=== PATIENT | male | born 1965 | race Caucasian/White ===

== ENCOUNTER 2024-06-14 14:33 | Inpatient (IN) | payer OTHER ==
[~2024-06-14] VITALS: Ht 177.8 cm; Wt 99.0 kg
--- NOTE | 2024-06-14 15:01 | ED.PDOC ---
History of Present Illness HPI Comments 58 year old male presents to the ED with chief complaint of generalized weakness. Patient reports that he has been experiencing generalized weakness with associated symptoms of right arm and leg pain, chest pressure, palpitations, and lightheadedness for the past 5 days. Patient relays that he has been out of his Eliquis for the past month due to not being able to afford the wood of it anymore. Patient has history of CVA with left sided deficits and CAD. Patient denies any SOB, dizziness, headache, blurred vision, or N/V. Chief Complaint: General Weakness Time Seen by MD: 14:56 Reviewed Notes: Nurses Notes, Medications, Allergies Allergies: Coded Allergies: NO KNOWN ALLERGIES (Unverified , 06/14/24) Information Source: Patient Mode of Arrival: Ambulatory Severity: Moderate Timing: Hours Duration: Since onset Prehospital treatment: None Past Medical History PAST MEDICAL HISTORY: CAD, CVA, High Lipids, HTN Surgical History: Pacemaker Family History Family History: Reviewed,noncontributory to illness Social History Smoker: Non-Smoker Alcohol: Denies ETOH Use Drugs: Denies Drug Use Lives In: Home Constitutional: reports: weakness; denies: chills, diaphoresis, fatigue, fever, malaise, sweats, others EENTM: denies: blurred vision, double vision, ear bleeding, ear discharge, ear drainage, ear pain, ear ringing, eye pain, eye redness, hearing loss, mouth pain, mouth swelling, nasal discharge, nose bleeding, nose congestion, nose pain, photophobia, tearing, throat pain, throat swelling, voice changes, others Respiratory: denies: cough, hemoptysis, orthopnea, SOB at rest, shortness of breath, SOB with excertion, stridor, wheezing, others Cardiovascular: reports: chest pain, lightheadedness, palpitations; denies: dizzy spells, diaphoresis, Dyspnea on exertion, edema, irregular heart beat, left arm pain, PND, syncope, others Gastrointestinal: denies: abdomen distended, abdominal pain, blood streaked bowels, constipated, diarrhea, dysphagia, difficulty swallowing, hematemesis, m obed, nausea, poor appetite, poor fluid intake, rectal bleeding, rectal pain, vomiting, others Genitourinary: denies: burning, dysuria, flank pain, frequency, hematuria, incontinence, penile discharge, penile sore, pain, testicle pain, testicle swelling, urgency, others Neurological: denies: dizziness, fainting, headache, left sided numbness, left sided weakness, numbness, paresthesia, pre-existing deficit, right sided numbness, right sided weakness, seizure, speech problems, tingling, tremors, weakness, others Musculoskeletal: reports: others (Rt arm and leg pain); denies: back pain, gout, joint pain, joint swelling, muscle pain, muscle stiffness, neck pain Integumetry: denies: bruises, change in color, change in hair/nails, dryness, laceration, lesions, lumps, rash, wounds, others Allergic/Immunocompromised: denies: Difficulty Healing, Frequent Infections, Hives, Itching, others Hematologic/Lymphatic: denies: anemia, blood clots, easy bleeding, easy bruising, swollen glands, others Endocrine: denies: excessive hunger, excessive sweating, excessive thirst, excessive urination, flushing, intolerance to cold, intolerance to heat, unexplained weight gain, unexplained weight loss, others Psychiatric: denies: anxiety, bipolar disorder, depression, hopeless, panic disorder, schizophrenia, sleepless, suicidal, others All Other Systems: Reviewed and Negative Physical Exam General Appearance: No Apparent Distress, Normal HEENT: Normal ENT Inspection, Pharynx Normal, TMs Normal Neck: Full Range of Motion, Non-Tender, Normal, Normal Inspection Respiratory: Chest Non-Tender, Lungs Clear, No Accessory Muscle Use, No Respiratory Distress, Normal Breath Sounds Cardiovascular: No Edema, No JVD, No Murmur, No Gallop, Normal Peripheral Pulses, Regular Rate/Rhythm, Other (Pacemaker in place) Breast Exam: Deferred Gastrointestinal: No Organomegaly, Non Tender, No Pulsatile Mass, Normal Bowel Sounds, Soft Genitalia: Deferred Pelvic: Deferred Rectal: Deferred Extremities: No calf tenderness, Normal capillary refill, Normal inspection, Normal range of motion, Non-tender, No pedal edema Musculoskeletal : Apperance: Normal Neurologic: Alert, roving inspector II-XII nml as Tested, Normal Affect, Normal Mood, No Sensory Deficits, Other (Left arm and leg weakness) Cerebellar Function: Normal Reflexes: Normal Skin: Dry, Normal Color, Warm Lymphatic: No Adenopathy Was a procedure done? Was a procedure done?: No Differential Dx Considerations may include: ACS, CVA, electrolyte abnormality, infectious etiology X-Ray, Labs, Meds, VS Vital Signs Date Time Temp Pulse Resp B/P (MAP) Pulse Ox O2 Delivery O2 Flow Rate FiO2 06/14/24 14:50 98.9 75 19 161/106 (124) 95 Lab Test 06/14/24 16:01 Range/Units White Blood Count 7.4 4.4-10.8 10^3/uL Red Blood Count 4.96 4.5-5.90 10^6/uL Hemoglobin 14.8 13.5-17.5 g/dL Hematocrit 43.9 41.0-53.0 % Mean Corpuscular Volume 88.5 80.0-100.0 fL Mean Corpuscular Hemoglobin 29.7 28.0-32.0 pg Mean Corpuscular Hemoglobin Concent 33.6 32.0-36.0 g/dL Red Cell Distribution Width 14.0 11.8-14.3 % Platelet Count 233 140-450 10^3/uL Mean Platelet Volume 7.9 6.9-10.8 fL Neutrophils (%) (Auto) 65.7 37.0-80.0 % Lymphocytes (%) (Auto) 23.4 10.0-50.0 % Monocytes (%) (Auto) 8.3 0.0-12.0 % Eosinophils (%) (Auto) 1.9 0.0-7.0 % Basophils (%) (Auto) 0.7 0.0-2.0 % Neutrophils # (Auto) 4.9 1.6-8.6 10 ^3/uL Lymphocytes # (Auto) 1.7 0.4-5.4 10 ^3/uL Monocytes # (Auto) 0.6 0-1.3 10 ^3/uL Eosinophils # (Auto) 0.1 0-0.8 10 ^3/uL Basophils # (Auto) 0 0-0.2 10 ^3/uL Nucleated Red Blood Cells 0.1 % Sodium Level 142 136-145 mmol/L Potassium Level 3.4 L 3.5-5.1 mmol/L Chloride Level 107 98-107 mmol/L Carbon Dioxide Level 28 20-31 mmol/L Anion Gap 7 5-15 Blood Urea Nitrogen 23 9-23 mg/dL Creatinine 1.41 H 0.700-1.30 mg/dL Glomerular Filtration Rate Calc 57 >90 mL/min BUN/Creatinine Ratio 16.3 10.0-20.0 Serum Glucose 107 H 74-106 mg/dL Calcium Level 10.0 8.7-10.4 mg/dL Troponin I High Sensitivity 17 </=54 ng/L B-Type Natriuretic Peptide 23.47 0-100 pg/mL Chest XR: FINDINGS: Lines and Tubes: Dual-chamber pacemaker is in place with pulse generator over the left chest Lungs: No focal consolidation. Pleura: No effusion. No pneumothorax. Cardiomediastinal contours: Unremarkable Bones: No acute osseous abnormality. IMPRESSION: 1. No acute cardiopulmonary disease. CT Head: FINDINGS: There is no evidence of acute intracranial hemorrhage, extra-axial collection, mass effect, midline shift, herniation or hydrocephalus. Small focal area of decreased attenuation in the moises on the right may represent a small infarct. Small area of decreased attenuation in the thalamus on the left. This suggests old lacunar infarct. The ventricles, sulci and cisterns are age appropriate. The lai-white differentiation is intact. Patchy periventricular and subcortical white matter hypoattenuation is nonspecific but may be related to small vessel ischemic disease. The visualized paranasal sinuses and mastoid air cells are clear. The surrounding soft tissues and osseous structures are unremarkable. IMPRESSION: 1. Findings suggest old lacunar infarcts in the moises thalamus. 2. No acute intracranial hemorrhage. 3. No prior studies for comparison Images Reviewed?: Images reviewed and evaluated by me Time of 1ST Reevaluation: 15:56 Reevaluation 1ST: Unchanged Patient Education/Counseling: Diagnosis, Treatment Family Education/Counseling: No Family Present Additional Information The following tests were ordered, and results were reviewed by me: Additional Information was gathered from interviewing the following independent historians: I reviewed and agreed with the following test results read by other providers: I discussed treatment and results with medical personnel and: Departure 1 Departure Time of Disposition: 17:18 (Patient presented with chest pain that was concerning for possible STEMI, ACS, PE, Pneumonia, Muscle Strain, COPD, Dissec tion. Data: 1. I ordered and reviewed the result of at least 3 labs including a CBC, BMP, and Troponin. 2. I independently interpreted the following tests: EKG which shows paced rhythm and Chest X-ray which shows benign chest.Risk:This patient has a high risk of morbidity due to further diagnostic testing or treatment and may suffer from an acute cardiac or respiratory disorder. Workup reveals concern for ACS and patient should be admitted for further workup and possible expert consultation. ) Impression: Primary Impression: Acute chest pain Additional Impressions: Generalized weakness History of stroke Disposition: ADMITTED INPATIENT Admit to: Med Surg Condition: Serious Critical Care Note Critical Care Time?: No Stability Stability form required: No Heart Score Heart Score: Heart Score Response (Comments) Value History Moderate Suspicious 1 EKG Repolarization Disturb 1 Age 45-64 1 Risk Factors >3 or Hx ASHD 2 Troponin 1-2 x's Normal limit 1 Total 6 I personally scribed for RONNY ABARCA MD ([email or web address]) on 06/14/24 at 15:01. Electronically submitted by Vivek Conklin ([email or web address]). I personally scribed for RONNY ABARCA MD ([email or web address]) on 06/14/24 at 15:31. Electronically submitted by Vivek Conklin ([email or web address]). I personally scribed for RONNY ABARCA MD ([email or web address]) on 06/14/24 at 16:43. Electronically submitted by Vivek Conklin ([email or web address]). RONNY ABARCA MD Jun 14, 2024 15:01
--- NOTE | 2024-06-14 15:29 | DVH ---
CHEST RADIOGRAPH Indication: weakness Technique: Single frontal view of the chest was obtained Comparison: None FINDINGS: Lines and Tubes: Dual-chamber pacemaker is in place with pulse generator over the left chest Lungs: No focal consolidation. Pleura: No effusion. No pneumothorax. Cardiomediastinal contours: Unremarkable Bones: No acute osseous abnormality. IMPRESSION: 1. No acute cardiopulmonary disease.
--- NOTE | 2024-06-14 15:51 | DVH ---
EXAM: CT HEAD WITHOUT CONTRAST INDICATION: weakness, hx of cva TECHNIQUE: CT of the head without intravenous contrast. Radiation Dose Information: CT Dose: CTDI volume is 58.2 mGy. Dose-length product is 1049.29 mGy*cm The dose indicators for CT are the volume Computed Tomography (CT) Dose Index (CTDIvol) and the Dose Length Product (DLP), and are measured in units of mGy and mGy-cm, respectively. These indicators are not patient dose, but values generated from the CT scanner acquisition factors. The report includes radiation exposure data for exposures received during this examination. COMPARISON: None FINDINGS: There is no evidence of acute intracranial hemorrhage, extra-axial collection, mass effect, midline s hift, herniation or hydrocephalus. Small focal area of decreased attenuation in the moises on the right may represent a small infarct. Small area of decreased attenuation in the thalamus on the left. This suggests old lacunar infarct. The ventricles, sulci and cisterns are age appropriate. The lai-white differentiation is intact. Patchy periventricular and subcortical white matter hypoattenuation is nonspecific but may be related to small vessel ischemic disease. The visualized paranasal sinuses and mastoid air cells are clear. The surrounding soft tissues and osseous structures are unremarkable. IMPRESSION: 1. Findings suggest old lacunar infarcts in the moises thalamus. 2. No acute intracranial hemorrhage. 3. No prior studies for comparison
[2024-06-14 16:14] LABS: Basophils # (auto) 0 10 ^3/uL (0-0.2); Basophils % (auto) 0.7 % (0.0-2.0); Eosinophils # (auto) 0.1 10 ^3/uL (0-0.8); Eosinophils % (auto) 1.9 % (0.0-7.0); Hematocrit 43.9 % (41.0-53.0); Hemoglobin 14.8 g/dL (13.5-17.5); Lymphocytes # (auto) 1.7 10 ^3/uL (0.4-5.4); Lymphocytes % (auto) 23.4 % (10.0-50.0); Mean Corpuscular Hemoglobin 29.7 pg (28.0-32.0); Mean Corpuscular Hgb Conc. 33.6 g/dL (32.0-36.0); Mean Corpuscular Volume 88.5 fL (80.0-100.0); Monocytes # (auto) 0.6 10 ^3/uL (0-1.3); Monocytes % (auto) 8.3 % (0.0-12.0); Neutrophils # (auto) 4.9 10 ^3/uL (1.6-8.6); Neutrophils % (auto) 65.7 % (37.0-80.0); Nucleated Red Blood Cells % 0.1 %; Platelet Count (auto) 233 10^3/uL (140-450); Red Blood Cells 4.96 10^6/uL (4.5-5.90); White Blood Cell 7.4 10^3/uL (4.4-10.8)
[2024-06-14 16:23] LABS: Chloride 107 mmol/L (98-107); Sodium 142 mmol/L (136-145)
[2024-06-14 16:24] LABS: Anion Gap 7 (5-15); Carbon Dioxide 28 mmol/L (20-31)
[2024-06-14 16:29] LABS: BUN/Creatinine Ratio 16.3 (10.0-20.0); Blood Urea Nitrogen 23 mg/dL (9-23)
[2024-06-14 16:36] LABS: Glucose 107 mg/dL (74-106); Potassium 3.4 mmol/L (3.5-5.1)
[2024-06-14] MEDS: SODIUM CHLORIDE 0.9% 1,000 ML IV SCH (22:15)
[2024-06-14] MEDS ORDERED: DOCUSATE SOD 100 MG CAP PO PRN (22:15)
[2024-06-14] MEDS ORDERED: cloNIDine HCL 0.1 MG TAB PO PRN (22:15)
[2024-06-14] MEDS ORDERED: MORPHINE SULFATE INJ 2 MG/ml SYRG IV PRN (22:15)
[2024-06-14] MEDS ORDERED: NITROGLYCERIN 0.4 MG SL TAB SL PRN (22:15)
[2024-06-14] MEDS ORDERED: ONDANSETRON HCL 4 MG/2 ML VIAL IV PRN (22:15)
[2024-06-14] MEDS ORDERED: hydrALAZINE HCL 20 MG/ML VL IV PRN (22:15)
[2024-06-15] VITALS (10 sets, daily range): BP systolic 135–171; BP diastolic 77–115; PULSE 60–94; RESP 13–19; TEMP 97.5–98.1; O2SAT 94–98
--- NOTE | 2024-06-15 01:15 | DVHHP2 ---
IVAN MILAN DIMENSIONAL INTEGRATION ENGINEER 06/15/24 0115: History of Present Illness Reason for Visit: Generalized weakness, chest pain, dizziness History of Present Illness 58-year-old male with past medical history of CVA with left-sided deficits, CAD, hypertension presents with complaints of generalized weakness, chest pain, shortness of breath, and dizziness x5 days. Patient describes chest discomfort as pressure-like 09/29. No additional associated symptoms. Patient endorsed he has been off his Eliquis for a month because he can not afford it. Patient also endorsing generalized chronic right upper and lower extremity pain. At this time patient denies any fevers, chills, headaches, blurred vision, additional de ficits, slurred speech, leg edema. Cardiovascular: CAD, HTN CURRENCY EXCHANGE SPECIALIST: CVA Renal/: Chronic renal insuff Smoke: No ALCOHOL: none Drugs: None Lives: with Family Review of Systems Constitutional: Yes: Weakness; No: Fever, Chills, Sweats, Malaise, Other Eyes: No: Pain, Vision change, Conjunctivae inflammation, Eyelid inflammation, Other, Redness ENT: No: Ear pain, Ear discharge, Nose pain, Nose discharge, Nose congestion, Mouth pain, Mouth swelling, Throat pain, Throat swelling, Other Respiratory: Shortness of breath; No: Cough, Dry, SOB with excertion, Wheezing, Hemoptysis, Pleuritic Pain, Sputum, Wheezing, Other Cardiovascular: Chest Pain; No: Palpitations, Orthopnea, Paroxysmal Noc. Dyspnea, Edema, Lt Headedness, Other Gastrointestinal: No: Nausea, Vomiting, Abdominal Pain, Diarrhea, Constipation, Melena, Hematochezia, Other Genitourinary: No Dysuria, No Frequency, No Incontinence, No Hematuria, No Retention, No Other Musculoskeletal: No: other, neck pain, shoulder pain, arm pain, back pain, hand pain, leg pain, foot pain Skin: No: Rash, Lesions, Jaundice, Bruising, Other Neurological: No: Weakness, Numbness, Incoordination, Change in speech, Confusion, Seizures, Other Allergies: Coded Allergies: NO KNOWN ALLERGIES (Unverified , 06/14/24) Medications Current Medications Medications Dose Ordered Sig/Zack Route Start Time Stop Time Status Last Admin Dose Admin Sodium Chloride 1,000 ml @ 75 mls/hr [id number] IV 06/14/24 22:15 06/15/24 11:34 Docusate Sodium 100 mg BIDPRN PRN PO 06/14/24 22:15 Acetaminophen 650 mg Q6HP PRN PO 06/14/24 22:15 Acetaminophen/ Hydrocodone Bitart 1 tab Q6HPRN PRN PO 06/14/24 22:15 Ondansetron HCl 4 mg Q4HP PRN IV 06/14/24 22:15 UNV Enoxaparin Sodium 40 mg DAILY SC 06/15/24 10:00 Nitroglycerin 0.4 mg Q5MINP PRN SL 06/14/24 22:15 Morphine Sulfate 2 mg Q30M PRN IV 06/14/24 22:15 Hydralazine HCl 50 mg TID PO 06/15/24 06:00 Carvedilol 12.5 mg BID PO 06/15/24 10:00 Meclizine HCl 25 mg TID PO 06/15/24 06:00 Clonidine HCl 0.1 mg Q8HP PRN PO 06/14/24 22:15 Hydralazine HCl 10 mg Q6HPRN PRN IV 06/14/24 22:15 Exam Vital Signs Vital Signs Date Time Temp Pulse Resp B/P (MAP) Pulse Ox O2 Delivery O2 Flow Rate FiO2 06/14/24 14:50 98.9 75 19 161/106 (124) 95 General Appearance: Alert, Oriented X3, Cooperative, mild distress HEENT: Atraumatic, PERRLA, EOMI, Mucous membr. moist/pink Respiratory: Clear to auscultation, Normal air movement Cardiovascular: Regular rate, Normal S1, Normal S2 Abdominal: Soft, No tenderness Extremities: No cyanosis, Normal pulses Skin: No rashes, No breakdown Neuro: Normal speech, Other (Left-sided deficits at baseline) Psych/Mental Status: Mental status NL, Mood NL Labs/Xrays Labs Test 06/14/24 18:52 06/14/24 16:01 Range/Units Troponin I High Sensitivity 18 </=54 ng/L White Blood Count 7.4 4.4-10.8 10^3/uL Red Blood Count 4.96 4.5-5.90 10^6/uL Hemoglobin 14.8 13.5-17.5 g/dL Hematocrit 43.9 41.0-53.0 % Mean Corpuscular Volume 88.5 80.0-100.0 fL Mean Corpuscular Hemoglobin 29.7 28.0-32.0 pg Mean Corpuscular Hemoglobin Concent 33.6 32.0-36.0 g/dL Red Cell Distribution Width 14.0 11.8-14.3 % Platelet Count 233 140-450 10^3/uL Mean Platelet Volume 7.9 6.9-10.8 fL Neutrophils (%) (Auto) 65.7 37.0-80.0 % Lymphocytes (%) (Auto) 23.4 10.0-50.0 % Monocytes (%) (Auto) 8.3 0.0-12.0 % Eosinophils (%) (Auto) 1.9 0.0-7.0 % Basophils (%) (Auto) 0.7 0.0-2.0 % Neutrophils # (Auto) 4.9 1.6-8.6 10 ^3/uL Lymphocytes # (Auto) 1.7 0.4-5.4 10 ^3/uL Monocytes # (Auto) 0.6 0-1.3 10 ^3/uL Eosinophils # (Auto) 0.1 0-0.8 10 ^3/uL Basophils # (Auto) 0 0-0.2 10 ^3/uL Nucleated Red Blood Cells 0.1 % Sodium Level 142 136-145 mmol/L Potassium Level 3.4 L 3.5-5.1 mmol/L Chloride Level 107 98-107 mmol/L Carbon Dioxide Level 28 20-31 mmol/L Anion Gap 7 5-15 Blood Urea Nitrogen 23 9-23 mg/dL Creatinine 1.41 H 0.700-1.30 mg/dL Glomerular Filtration Rate Calc 57 >90 mL/min BUN/Creatinine Ratio 16.3 10.0-20.0 Serum Glucose 107 H 74-106 mg/dL Calcium Level 10.0 8.7-10.4 mg/dL B-Type Natriuretic Peptide 23.47 0-100 pg/mL Assessment/Plan Assessment/Plan Dizziness Chest pain Uncontrolled hypertension History of CVA off oral anticoagulation therapy Plan Admit to telemetry Cardiology consult. Echocardiogram. As needed and have pretentious for optimal BP management. Neurology consult. Defer MRI brain to neurology. Meclizine three times a day. Physical therapy evaluation. Social service consult. Consider transition to more affordable oral anticoagulation therapy IVF NS @ 74ml/hr x 1liter GI ppx pepcid dvt ppx lovenox Plan discussed with: Patient My Orders Orders - IVAN MILAN NP Procedure Category Date Status Time Admit ADMIT 06/14/24 Transmitted 22:03 Code Status CODE 06/14/24 Transmitted 22:03 Vital Signs MATHIEU 06/14/24 In Process 22:03 Review Orders With MATHIEU 06/14/24 In Process Adm. 22:03 Encourage Activity As MATHIEU 06/14/24 In Process Tolerate 22:03 Consistent DIET 06/15/24 Transmitted Carb(Ccho)Diabetes Breakfast Sodium Chloride 0.9% PHA 06/14/24 In Process 22:15 Oxygen By Face Mask RT 06/14/24 Transmitted 22:03 Docusate Sodium PHA 06/14/24 In Process Capsule (Colace 22:15 Acetaminophen Tablet PHA 06/14/24 In Process (Tylenol Tablet) 22:15 Notify Of Changes MATHIEU 06/14/24 In Process From Base 22:03 Advance Directive MATHIEU 06/14/24 In Process 22:03 Echo 2d Mode Cardiac US 06/14/24 Logged DOP 22:03 Basic Metabolic Panel LAB 06/15/24 Logged 05:00 Basic Metabolic Panel LAB 06/16/24 Verified 05:00 Basic Metabolic Panel LAB 06/17/24 Verified 05:00 Complete Blood Count LAB 06/15/24 Logged 05:00 Complete Blood Count LAB 06/16/24 Verified 05:00 Complete Blood Count LAB 06/17/24 Verified 05:00 Patient Condition ORDERS 06/14/24 Transmitted 22:03 Allergies MATHIEU 06/14/24 In Process 22:03 Hydrocodone-Acet PHA 06/14/24 In Process 5/325mg Tab ([place] 22:15 Ondansetron Hcl PHA 06/14/24 Pending (Zofran) 22:15 Enoxaparin Sodium PHA 06/15/24 In Process (Lovenox) 10:00 Sequential MATHIEU 06/14/24 In Process Compression Device Nitroglycerin PHA 06/14/24 In Process Sublingual (Ntrostat 22:15 Morphine Sulfate PHA 06/14/24 In Process Injection 22:15 Stat Ekg For Chest MATHIEU 06/14/24 In Process Pain 22:03 Notify Of Changes MATHIEU 06/14/24 In Process From Base 22:03 Alumina Refinery Operator For MATHIEU 06/14/24 In Process 24 Hours 22:03 Emergency Dysrhythmia MATHIEU 06/14/24 In Process Protocol 22:03 Rhythm Strips Once MATHIEU 06/14/24 In Process Every Shift 22:03 Oxygen By Nasal RT 06/14/24 Transmitted Cannula 22:03 Hydralazine Hcl PHA 06/15/24 In Process Tablet (Apresoline 06:00 Carvedilol Tablet PHA 06/15/24 In Process (Coreg Tablet) 10:00 Meclizine Tablet PHA 06/15/24 In Process (Antivert Tablet) 06:00 Pt Request For Service PT 06/14/24 Logged 22:03 Clonidine Hcl Tablet PHA 06/14/24 In Process (Catapres Tablet) 22:15 Hydralazine Injection PHA 06/14/24 In Process (Apresoline Inject 22:15 * Cardiology Consult CONS 06/14/24 Transmitted 22:03 Date of Service: Jun 15, 2024 Billing Provider: SHERRY CHAN MD Common Visit Codes: NOT BILLABLE SHERRY CHAN MD 06/15/24 1206: Review of Systems Allergies: Coded Allergies: NO KNOWN ALLERGIES (Unverified , 06/14/24) Assessment/Plan Assessment/Plan Patient's chart is reviewed in the discussed with nurse practitioner. I agree with the nurse practice nurse evaluation, documentation, assessment and care plan as outlined Plan discussed with: Other IVAN MILAN NP Jun 15, 2024 01:15 SHERRY CHAN MD Jun 15, 2024 12:06
[2024-06-15] MEDS: HYDROcodone-ACET 5/325MG TAB PO PRN (01:47)
[2024-06-15 02:35] LABS: Urine Bacteria None Seen /hpf (None Seen)
[2024-06-15 02:59] LABS: Urine Blood Negative /uL (Negative); Urine Clarity Clear (Clear); Urine Color Light-Yellow (Yellow); Urine Protein, UAD 1+ (Negative); Urine Specific Gravity 1.021 (1.001-1.035); Urine Squamous Epithelial Cell None Seen /hpf (<5); Urine Urobilinogen Normal (Negative); Urine WBC < 1 /HPF (0-3); Urine pH 5.5 (5.0-9.0)
[2024-06-15 06:37] LABS: Basophils # (auto) 0.1 10 ^3/uL (0-0.2); Basophils % (auto) 0.7 % (0.0-2.0); Eosinophils # (auto) 0.1 10 ^3/uL (0-0.8); Eosinophils % (auto) 1.7 % (0.0-7.0); Hematocrit 44.2 % (41.0-53.0); Hemoglobin 14.5 g/dL (13.5-17.5); Lymphocytes # (auto) 2.1 10 ^3/uL (0.4-5.4); Lymphocytes % (auto) 26.4 % (10.0-50.0); Mean Corpuscular Hemoglobin 29.5 pg (28.0-32.0); Mean Corpuscular Hgb Conc. 32.8 g/dL (32.0-36.0); Mean Corpuscular Volume 89.7 fL (80.0-100.0); Monocytes # (auto) 0.7 10 ^3/uL (0-1.3); Monocytes % (auto) 8.4 % (0.0-12.0); Neutrophils % (auto) 62.8 % (37.0-80.0); Nucleated Red Blood Cells % 0.1 %; Platelet Count (auto) 212 10^3/uL (140-450); Red Blood Cells 4.92 10^6/uL (4.5-5.90)
[2024-06-15 06:49] LABS: Anion Gap 11 (5-15); Carbon Dioxide 23 mmol/L (20-31); Sodium 143 mmol/L (136-145)
[2024-06-15 06:50] LABS: Calcium 9.8 mg/dL (8.7-10.4)
[2024-06-15] MEDS: MECLIZINE HCL 25 MG TAB PO SCH (06:50)
[2024-06-15] MEDS: hydrALAZINE HCL 25 MG TAB PO SCH (06:50)
[2024-06-15 06:55] LABS: BUN/Creatinine Ratio 14.5 (10.0-20.0); Blood Urea Nitrogen 17 mg/dL (9-23); Chloride 109 mmol/L (98-107); Glucose 85 mg/dL (74-106); Potassium 3.3 mmol/L (3.5-5.1)
[2024-06-15] MEDS ORDERED: CARV12.544 PO (06:56)
[2024-06-15] MEDS ORDERED: CLON-853 PO (06:56)
[2024-06-15] MEDS ORDERED: LEVO50TA7 PO (06:56)
[2024-06-15] MEDS ORDERED: MAGN400T40 PO (06:56)
[2024-06-15] MEDS ORDERED: HYDR50TA47 PO (06:56)
[2024-06-15] MEDS ORDERED: TIZA4CAP PO (06:56)
[2024-06-15] MEDS ORDERED: ALLO100T PO (06:56)
[2024-06-15] MEDS ORDERED: NIFE1TAB31 PO (06:56)
[2024-06-15] MEDS ORDERED: LOSA-535 PO (06:56)
[2024-06-15] MEDS ORDERED: POTA20IN4 IV (06:56)
[2024-06-15] MEDS ORDERED: FURO1TAB33 PO (06:56)
[2024-06-15] MEDS: CARVEDILOL 3.125 MG TAB PO SCH (09:22)
[2024-06-15] MEDS: ENOXAPARIN SOD 40 MG/0.4 ML SYRINGE SC SCH (09:22)
[2024-06-15 12:57] LABS: Triglycerides 99 mg/dL (< 150)
[2024-06-15 12:58] LABS: LDL Cholesterol 73 mg/dL (< 100)
[2024-06-15 12:59] LABS: Cholesterol 122 mg/dL (< 200)
[2024-06-15 13:04] LABS: HDL Cholesterol 37 mg/dL (40-59)
[2024-06-15] MEDS: POTASSIUM EFFERVESENT TAB 25 MEQ PO ONE (13:13)
[2024-06-15] MEDS: ACETAMINOPHEN 325 MG TAB PO PRN (13:15)
--- NOTE | 2024-06-15 13:43 | DVHSR ---
APPROVED REPORT EXAM: Two-dimensional and M-mode echocardiogram with Doppler and color Doppler. Mitral Valve MitralMitral Stenosis E/A ratio0.02D MVAcm2 LEFT VENTRICLE The left ventricle is normal size. There is normal left ventricular wall thickness. The left ventricle is normal in structure and function. Left ventricle systolic function is normal. The Ejection Fraction is 55-60%. No regional wall motion abnormalities noted. RIGHT VENTRICLE The right ventricle is normal size. There is normal right ventricular wall thickness. The right ventricular systolic function is normal. ATRIA The left atrium size is normal. The right atrium size is normal. The interatrial septum is intact with no evidence for an atrial septal defect. MITRAL VALVE The mitral valve is normal in structure and function. There is no evidence of mitral valve prolapse. There is no mitral valve stenosis. There is no mitral valve regurgitation noted. PULMONIC VALVE The pulmonary valve is normal in structure and function. There is no pulmonic valvular regurgitation. There is no pulmonic valvular stenosis. TRICUSPID VALVE The tricuspid valve is normal in structure and function. There is no tricuspid valve regurgitation noted. There is no tricuspid valve prolapse or vegetation. There is no tricuspid valve stenosis. AORTIC VALVE The aortic valve is normal in structure and function. No aortic regurgitation is present. There is no aortic valvular stenosis. There is no aortic valvular vegetation. GREAT VESSELS The aortic root is normal in size. PERICARDIAL EFFUSION There is a no pericardial effusion. Conclusion There is normal left ventricular wall thickness. The left ventricle is normal in structure and function. Left ventricle systolic function is normal. The Ejection Fraction is 55-60%. There is no gross valvular pathology There is no pericardial effusion.
--- NOTE | 2024-06-15 14:42 | ECG ---
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
[2024-06-15] MEDS: RIVAROXABAN 20 MG TAB PO SCH (17:12)
--- NOTE | 2024-06-15 20:02 | DVHINCON2 ---
DATE OF CONSULTATION: 06/15/2024 REFERRING PHYSICIAN: Dr. Everton Jones. CONSULTING PHYSICIAN: Dr. Valerio. INDICATION: Chest pain. HISTORY OF PRESENT ILLNESS: The patient is a 58-year-old male with history of hypertension, stroke in the past, history of AFib, status post permanent pacemaker implantation. The patient has been on Eliquis in the past, however, could not afford it and stopped recently. Now presented to the hospital with complaints of generalized body pain and also chest pain. Described the pain as left sided, sharp. PR has been ruled out with serial negative troponin. The patient also complains of bilateral lower extremity pain, sharp and weakness. PAST MEDICAL HISTORY: * Hypertension. * Stroke. * AFib. * Status post permanent pacemaker implantation. MEDICATIONS: Per med rec. ALLERGIES: No known drug allergies. PHYSICAL EXAMINATION: GENERAL: Alert and awake, in no form of cardiopulmonary distress. VITAL SIGNS: Blood pressure 142/97, pulse ____ per minute, saturation 97%. HEENT: No carotid bruits. No jugular venous distention. CHEST: Bilateral air entry. CARDIOVASCULAR: Precordial and carotid pulses palpable. Normal S1, S2. No appreciable gallop or rubs ____. EXTREMITIES: No peripheral edema. DIAGNOSTIC DATA: CBC is normal. Sodium 140, potassium 3.2, creatinine is 1.1. Troponin negative x3. ASSESSMENT: * Chest pain, atypical. Myocardial infarction has been ruled out with serial negative troponins. * Hypokalemia. * Generalized body pain. * Hypertension. * History of stroke with residual left sided body weakness. * History of atrial fibrillation. * Status post permanent pacemaker implantation. RECOMMENDATIONS: * Continue with Xarelto for stroke risk reduction. * Continue statin therapy. * We will supplement potassium, keep potassium above 4. * We will review echo once completed. * Continue telemetry monitoring. * If echo unremarkable, no further inpatient cardiac workup indicated. Thank you for allowing me to participate in the care of this patient. MD ANTONIO Garnett/KARINE/ANGELINE TID: [id number] RECEIPT: [id number]
[2024-06-15] MEDS: POTASSIUM EFFERVESENT TAB 25 MEQ PO SCH (21:38)
[2024-06-15] MEDS: ATORVASTATIN 20 MG TAB PO SCH (21:39)
[2024-06-15] MEDS: CARVEDILOL 12.5 MG TAB PO SCH (21:40)
[2024-06-16 05:00] VITALS: BP 150/94; PULSE 60; RESP 17; TEMP 97.4; O2SAT 98
[2024-06-16] MEDS: LEVOTHYROXINE SODIUM 50 MCG TAB PO SCH (05:23)
[2024-06-16 07:34] LABS: Basophils # (auto) 0.1 10 ^3/uL (0-0.2); Basophils % (auto) 0.9 % (0.0-2.0); Eosinophils # (auto) 0.1 10 ^3/uL (0-0.8); Eosinophils % (auto) 1.8 % (0.0-7.0); Hematocrit 43.2 % (41.0-53.0); Hemoglobin 14.6 g/dL (13.5-17.5); Lymphocytes # (auto) 1.8 10 ^3/uL (0.4-5.4); Lymphocytes % (auto) 23.7 % (10.0-50.0); Mean Corpuscular Hemoglobin 30.4 pg (28.0-32.0); Mean Corpuscular Hgb Conc. 33.9 g/dL (32.0-36.0); Mean Corpuscular Volume 89.6 fL (80.0-100.0); Monocytes # (auto) 0.6 10 ^3/uL (0-1.3); Monocytes % (auto) 7.8 % (0.0-12.0); Neutrophils # (auto) 4.9 10 ^3/uL (1.6-8.6); Neutrophils % (auto) 65.8 % (37.0-80.0); Platelet Count (auto) 211 10^3/uL (140-450); Red Blood Cells 4.83 10^6/uL (4.5-5.90); Red Cell Distribution Width 13.9 % (11.8-14.3); White Blood Cell 7.4 10^3/uL (4.4-10.8)
[2024-06-16 07:42] LABS: Anion Gap 10 (5-15); Carbon Dioxide 26 mmol/L (20-31); Chloride 106 mmol/L (98-107); Potassium 3.6 mmol/L (3.5-5.1); Sodium 142 mmol/L (136-145)
[2024-06-16 07:44] LABS: Calcium 9.7 mg/dL (8.7-10.4)
[2024-06-16 07:48] LABS: Blood Urea Nitrogen 16 mg/dL (9-23); Glucose 80 mg/dL (74-106)
[2024-06-16 08:00] VITALS: PULSE 65
[2024-06-16] MEDS: ALLOPURINOL 100 MG TAB PO SCH (08:51)
[2024-06-16] MEDS: FUROSEMIDE 20 MG TAB PO SCH (08:51)
[2024-06-16] MEDS: NIFEdipine ER 30 MG TAB PO SCH (08:53)
[2024-06-16 09:00] VITALS: BP_SYST 139; BP_SYST 140; BP_DIAS 103; BP_DIAS 86; PULSE 104; PULSE 92; RESP 19; TEMP 97.7; O2SAT 96
[2024-06-16] MEDS ORDERED: MAGNESIUM OXIDE 400 MG TAB PO SCH (10:00)
[2024-06-16] MEDS: MAGNESIUM OXIDE 400 MG TAB PO SCH (11:39)
[2024-06-16] MEDS ORDERED: RIVA20TA PO (11:41)
[2024-06-16 13:00] VITALS: BP 152/82; PULSE 70; RESP 17; TEMP 98; O2SAT 94
--- NOTE | 2024-06-16 13:03 | DVHPN2 ---
Progress Note - Dictate Date Seen: Jun 16, 2024 Medical Necessity Reason Pt with a Central, PICC or Fol: No Subjective Patient does not complain of any dizziness today. However he complains of generalized body aches and tells me he does not feel well. vital signs Vital Sign Date Time Temp Pulse Resp B/P (MAP) Pulse Ox O2 Delivery O2 Flow Rate FiO2 06/16/24 09:52 88 131/87 06/16/24 09:00 19 96 06/16/24 09:00 97.7 97.7 06/15/24 20:00 Room Air* 0 21 Total Intake and Output 06/15/24 06/15/24 06/16/24 15:00 23:00 07:00 Intake Total 480 ml 550 ml Output Total 1252 ml 875 ml Balance -772 ml -325 ml medications Current Medications Medications Dose Ordered Sig/Zack Route Start Time Stop Time Status Last Admin Dose Admin Docusate Sodium 100 mg BIDPRN PRN PO 06/14/24 22:15 Acetaminophen 650 mg Q6HP PRN PO 06/14/24 22:15 06/15/24 13:15 650 MG Acetaminophen/ Hydrocodone Bitart 1 tab Q6HPRN PRN PO 06/14/24 22:15 06/16/24 08:52 1 TAB Ondansetron HCl 4 mg Q4HP PRN IV 06/14/24 22:15 Nitroglycerin 0.4 mg Q5MINP PRN SL 06/14/24 22:15 Morphine Sulfate 2 mg Q30M PRN IV 06/14/24 22:15 Hydralazine HCl 50 mg TID PO 06/15/24 06:00 06/16/24 05:23 50 MG Meclizine HCl 25 mg TID PO 06/15/24 06:00 06/16/24 05:23 25 MG Clonidine HCl 0.1 mg Q8HP PRN PO 06/14/24 22:15 Hydralazine HCl 10 mg Q6HPRN PRN IV 06/14/24 22:15 Allopurinol 100 mg DAILY PO 06/16/24 10:00 06/16/24 08:51 100 MG Carvedilol 12.5 mg Q12HR PO 06/15/24 22:00 06/16/24 08:52 12.5 MG Furosemide 20 mg DAILY PO 06/16/24 10:00 06/16/24 08:51 20 MG Levothyroxine Sodium 50 mcg QAM PO 06/16/24 07:00 06/16/24 05:23 50 MCG Nifedipine 30 mg DAILY PO 06/16/24 10:00 06/16/24 08:53 30 MG Potassium Bicarbonate 50 meq BID PO 06/15/24 22:00 06/16/24 08:50 50 MEQ Rivaroxaban 20 mg QPM PO 06/15/24 18:00 06/15/24 17:12 20 MG Atorvastatin Calcium 20 mg HS PO 06/15/24 22:00 06/15/24 21:39 20 MG Magnesium Oxide 400 mg DAILY PO 06/16/24 11:27 06/16/24 11:39 400 MG objective Anxious gentleman in bed. Does not want to go home today. HEENT neck supple no JVD. Heart irregular rate and rhythm S1 and S2. Lungs fair air movement without rales or wheezes. Abdomen obese soft nontender positive bowel sounds. Extremities no edema positive distal pedal pulses. Neurological no focal neurologic deficits. laboratory and microbiology Laboratory Tests 06/16/24 05:14 Test 06/16/24 05:14 Range/Units Serum Glucose 80 74-106 mg/dL Assessment/Plan So far his workup in the hospital remains normal. Patient is not orthostatic. Continue Xarelto given his chronic atrial fibrillation for stroke prevention. Given his nonspecific generalized body complaints we will check inflammatory marker and uric acid. Start him on Flexeril as a muscle relaxant. Continue physical therapy. We will arrange for home safety evaluation and home physical therapy. We will monitor him overnight. If his evaluations and workup continued to remained normal he could be discharged home tomorrow. I had a long conversation with the patient regarding his hospital diagnosis, possible reasons for his generalized body aches, treatment plan of care and discharge plan of care. He has verbalized understanding of these and agreed with the current care plan. Problems(with codes): (1) Generalized weakness (2) Acute chest pain (3) History of stroke Plan discussed with: Patient, Other SHERRY CHAN MD Jun 16, 2024 13:03
[2024-06-16 13:37] LABS: Uric Acid 6.8 mg/dL (3.7-9.2)
[2024-06-16 13:51] LABS: CRP High Sensitivity 0.63 mg/dL (<1.0)
[2024-06-16] MEDS ORDERED: MECLIZINE HCL 25 MG TAB PO SCH (14:00)
[2024-06-16] MEDS ORDERED: CYCLOBENZAPRINE HCL 10 MG TAB PO SCH (14:00)
[2024-06-16 14:22] LABS: Erythrocyte Sedimentation Rate 7 mm/hr (0-20)
--- NOTE | 2024-06-17 14:27 | DVHDS2 ---
Discharge Summary Date of Admission Jun 14, 2024 at 22:03 Date of Discharge: Jun 16, 2024 Labs/Diagnostic Data: Laboratory Results Test 06/16/24 05:14 06/15/24 05:33 06/14/24 18:52 06/14/24 16:01 White Blood Count 7.4 10^3/uL (4.4-10.8) Red Blood Count 4.83 10^6/uL (4.5-5.90) Hemoglobin 14.6 g/dL (13.5-17.5) Hematocrit 43.2 % (41.0-53.0) Mean Corpuscular Volume 89.6 fL (80.0-100.0) Mean Corpuscular Hemoglobin 30.4 pg (28.0-32.0) Mean Corpuscular Hemoglobin Concent 33.9 g/dL (32.0-36.0) Red Cell Distribution Width 13.9 % (11.8-14.3) Platelet Count 211 10^3/uL (140-450) Mean Platelet Volume 8.4 fL (6.9-10.8) Neutrophils (%) (Auto) 65.8 % (37.0-80.0) Lymphocytes (%) (Auto) 23.7 % (10.0-50.0) Monocytes (%) (Auto) 7.8 % (0.0-12.0) Eosinophils (%) (Auto) 1.8 % (0.0-7.0) Basophils (%) (Auto) 0.9 % (0.0-2.0) Neutrophils # (Auto) 4.9 10 ^3/uL (1.6-8.6) Lymphocytes # (Auto) 1.8 10 ^3/uL (0.4-5.4) Monocytes # (Auto) 0.6 10 ^3/uL (0-1.3) Eosinophils # (Auto) 0.1 10 ^3/uL (0-0.8) Basophils # (Auto) 0.1 10 ^3/uL (0-0.2) Nucleated Red Blood Cells 0.0 % Erythrocyte Sedimentation Rate 7 mm/hr (0-20) Sodium Level 142 mmol/L (136-145) Potassium Level 3.6 mmol/L (3.5-5.1) Chloride Level 106 mmol/L (98-107) Carbon Dioxide Level 26 mmol/L (20-31) Anion Gap 10 (5-15) Blood Urea Nitrogen 16 mg/dL (9-23) Creatinine 1.23 mg/dL (0.700-1.30) Glomerular Filtration Rate Calc 68 mL/min (>90) BUN/Creatinine Ratio 13.0 (10.0-20.0) Serum Glucose 80 mg/dL (74-106) Uric Acid 6.8 mg/dL (3.7-9.2) Calcium Level 9.7 mg/dL (8.7-10.4) C-Reactive Protein High Sensitivity 0.63 mg/dL (<1.0) Hemoglobin A1c 4.9 % A1C (<5.7) Triglycerides Level 99 mg/dL (< 150) Cholesterol Level 122 mg/dL (< 200) LDL Cholesterol 73 mg/dL (< 100) HDL Cholesterol 37 mg/dL (40-59) Troponin I High Sensitivity 18 ng/L (</=54) B-Type Natriuretic Peptide 23.47 pg/mL (0-100) Test 06/14/24 02:12 Urine Color Light-yellow (Yellow) Urine Clarity Clear (Clear) Urine pH 5.5 (5.0-9.0) Urine Specific [place] 1.021 (1.001-1.035) Urine Protein 1+ (Negative) Urine Ketones Negative (Negative) Urine Blood Negative /uL (Negative) Urine Nitrite Negative (Negative) Urine Bilirubin Negative (Negative) Urine Urobilinogen Normal mg/dL (Negative) Urine Leukocyte Esterase Negative /uL (Negative) Urine RBC 3 /hpf (0 - 3) Urine Microscopic WBC < 1 /HPF (0-3) Urine Squamous Epithelial Cells None seen /hpf (<5) Urine Bacteria None seen /hpf (None Seen) Urine Glucose Normal mg/dL (Normal) Other Laboratory Tests 06/16/24 05:14 Brief Hx & Hospital Course: 58-year-old male with past medical history of CVA with left-sided deficits, CAD, hypertension presents with complaints of generalized weakness, chest pain, shortness of breath, and dizziness x5 days. Patient describes chest discomfort as pressure-like 6/10. No additional associated symptoms. Patient endorsed he has been off his Eliquis for a month because he can not afford it. Patient also endorsing generalized chronic right upper and lower extremity pain. At this time patient denies any fevers, chills, headaches, blurred vision, additional deficits, slurred speech, leg edema. He is admitted and had a head CT which did not show any acute stroke. He is evaluated by his naturopathic doctor and His echocardiogram did not show any acute pathology. Patient counseled and educated regarding compliance with his anticoagulation given the chronic atrial fibrillation to prevent embolic strokes. Patient started on Xarelto and prescriptions sent to his pharmacy and advised to take it. If he is unable to afford Xarelto then to continue dual antiplatelet therapy with the aspirin and Plavix. While in the hospital rest of his workup labs remained normal. His inflammatory markers also normal. Patient is clinically stable. Plan was to monitor him and discharge him once he feels better from his complains of nonspecific generalized pain/discomfort. However apparently after I have seen and evaluated the patient, he told the nurse that he wanted to leave against medical advice and left AMA in the evening time. I was notified by the nurse after he left AMA. Consults/Reason for consult ASSESSMENT: * Chest pain, atypical. Myocardial infarction has been ruled out with serial negative troponins. * Hypokalemia. * Generalized body pain. * Hypertension. * History of stroke with residual left sided body weakness. * History of atrial fibrillation. * Status post permanent pacemaker implantation. RECOMMENDATIONS: * Continue with Xarelto for stroke risk reduction. * Continue statin therapy. * We will supplement potassium, keep potassium above 4. * We will review echo once completed. * Continue telemetry monitoring. * If echo unremarkable, no further inpatient cardiac workup indicated. Thank you for allowing me to participate in the care of this patient. Raquel Denise MD [facility]/ANI Operations or Procedures EXAM: Two-dimensional and M-mode echocardiogram with Doppler and color Doppler. Mitral Valve Mitral Mitral Stenosis E/A ratio 0.0 2D MVA cm2 LEFT VENTRICLE The left ventricle is normal size. There is normal left ventricular wall thickness. The left ventricle is normal in structure and function. Left ventricle systolic function is normal. The Ejection Fraction is 55-60%. No regional wall motion abnormalities noted. RIGHT VENTRICLE The right ventricle is normal size. There is normal right ventricular wall thickness. The right ventricular systolic function is normal. ATRIA The left atrium size is normal. The right atrium size is normal. The interatrial septum is intact with no evidence for an atrial septal defect. MITRAL VALVE The mitral valve is normal in structure and function. There is no evidence of mitral valve prolapse. There is no mitral valve stenosis. There is no mitral valve regurgitation noted. PULMONIC VALVE The pulmonary valve is normal in structure and function. There is no pulmonic valvular regurgitation. There is no pulmonic valvular stenosis. TRICUSPID VALVE The tricuspid valve is normal in structure and function. There is no tricuspid valve regurgitation noted. There is no tricuspid valve prolapse or vegetation. There is no tricuspid valve stenosis. AORTIC VALVE The aortic valve is normal in structure and function. No aortic regurgitation is present. There is no aortic valvular stenosis. There is no aortic valvular vegetation. GREAT VESSELS The aortic root is normal in size. PERICARDIAL EFFUSION There is a no pericardial effusion. Conclusion There is normal left ventricular wall thickness. The left ventricle is normal in structure and function. Left ventricle systolic function is normal. The Ejection Fraction is 55-60%. There is no gross valvular pathology There is no pericardial effusion. SIGNED BY: RAQUEL DENISE MD SIGNED DATE/TIME: 06/15/24 2329 Condition at Discharge: Stable Final Diagnosis/Problems List Atrial fibrillation rate controlled, dizziness, hypertension, hyperlipidemia, generalized body aches Discharge Disposition: AMA Discharge Instruct/Medications New Medications: Rivaroxaban (Xarelto) 20 Mg Tab 1 TAB PO QPM, #90 TAB 1 Refill Continued Medications: Allopurinol (Allopurinol) 100 Mg Tab 100 MG PO DAILY for 30 Days, MG Carvedilol (Carvedilol) 12.5 Mg Tab 12.5 MG PO Q12HR for 30 Days, MG Clonazepam (Clonazepam) 1 Mg Tab 1 TAB PO QPM, #30 TAB Furosemide (Lasix) 20 Mg Tb 1 TAB PO DAILY, #90 TAB 1 Refill Hydralazine Hcl (Hydralazine Hcl) 50 Mg Tab 50 MG PO for 30 Days, MG Levothyroxine Sodium (Levothyroxine Sodium) 50 Mcg Tab 50 MCG PO QAM for 30 Days, MCG Losartan Potassium (Losartan Potassium) 100 Mg Tab 100 MG PO DAILY for 30 Days, MG Magnesium Oxide (Magnesium Oxide) 400 Mg Tab 1 TAB PO DAILY, #30 TAB 5 Refills Nifedipine (Nifedipine Er) 30 Mg Tab 1 TAB PO DAILY, #90 TAB 1 Refill Potassium Chloride (Potassium Chloride) 20 Meq/100 Ml Inj 20 MEQ IV, INJ Tizanidine Hydrochloride (Zanaflex) 4 Mg Cap 1 CAP PO BID, #60 CAP Discharge Statement: "Patient was advised to return to the ER or call 911 if any headaches, dizziness, shortness of breath, chest pain, abdominal pain, bleeding, fevers, or worsening of medical condition. Patient was counseled about treatment plan, medications, possible side effects, patientverbalized understanding. All questions were answered to the best of my ability. This discharge took greater then 30 minutes in planning, reviewing documentation, counseling the patient, and discussing with other team members." ASSESSMENT ASSESSMENT Assessment SHERRY CHAN MD Jun 17, 2024 14:27
== END 2024-06-16 17:44 | disposition left against medical advice (07) | DRG 305 ==
LOC: ER 14:33 → OVERFLOW 22:03 → TELE-CENTR 06-15 02:32
PROVIDERS: ADMIT Nurse Practitioner Family; ATTEND Nurse Practitioner Family
DX: I16.0 Hypertensive urgency (principal); I69.354 Hemiplegia and hemiparesis following cerebral infarction affecting left non-dominant side; E87.6 Hypokalemia; N18.9 Chronic kidney disease, unspecified; E78.5 Hyperlipidemia, unspecified; Z53.29 Procedure and treatment not carried out because of patient's decision for other reasons; I48.91 Unspecified atrial fibrillation; M79.604 Pain in right leg; M79.605 Pain in left leg; I12.9 Hypertensive chronic kidney disease with stage 1 through stage 4 chronic kidney disease, or unspecified chronic kidney disease; I25.10 Atherosclerotic heart disease of native coronary artery without angina pectoris; Z95.0 Presence of cardiac pacemaker; Z79.01 Long term (current) use of anticoagulants
CPT/HCPCS: 36415; 70450; 71045; 80048; 80061; 81001; 83036; 83880; 84484; 84550; 85025; 85652; 86141; 93005; 93306; G0378